=== PATIENT | male | born 1990 | race African-American/Black ===

== ENCOUNTER 2017-10-26 08:32 | Emergency (ER) | payer MEDICAID ==
[~2017-10-26] VITALS: Ht 167.6 cm; Wt 88.0 kg
[2017-10-26 08:36] VITALS: BP 159/95
== END 2017-10-26 09:00 | disposition home or self-care (01) ==
LOC: ER 09:00
DX: Z51.89 Encounter for other specified aftercare (principal); R03.0 Elevated blood-pressure reading, without diagnosis of hypertension
CPT/HCPCS: 99281

== ENCOUNTER 2021-09-30 21:55 | Emergency (ER) | payer MEDICAID, OTHER ==
[~2021-09-30] VITALS: Ht 177.8 cm; Wt 100.0 kg
[2021-10-01] MEDS ORDERED: KETOROLAC 30MG/ML VIAL IM ONE (01:00)
[2021-10-01] MEDS ORDERED: TETANUS, DIPHTHERIA, PERTUSSIS VAC/PF 0.5ML (>10YR OLD) IM ONE (01:45)
[2021-10-01 01:50] VITALS: BP 166/99
== END 2021-10-01 01:53 | disposition home or self-care (01) ==
LOC: ER 21:55
DX: R07.89 Other chest pain (principal); R00.2 Palpitations
CPT/HCPCS: 71045; 90471; 90715; 93005; 96372; 99284; A4217; J1885